=== PATIENT | male | born 1980 | race Caucasian/White ===

== ENCOUNTER 2020-03-04 08:35 | Emergency (ER) | payer BC, OTHER ==
[2020-03-04] MEDS ORDERED: Lactated Ringers 500 ML IV ONE (08:53)
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
[2020-03-04] MEDS ORDERED: Fluorescein 1 MG Ophth Strip EYELF ONE (09:23)
[2020-03-04] MEDS ORDERED: Acetaminophen 325 MG Tab PO ONE (10:05)
[2020-03-04] MEDS ORDERED: Erythromycin Base 0.5% Ophth Oint 1 GM Tube EYELF ONE (10:21)
== END 2020-03-04 10:45 | disposition home or self-care (01) ==
LOC: JD.ED 08:35
DX: T51.1X1A Toxic effect of methanol, accidental (unintentional), initial encounter (principal); T26.62XA Corrosion of cornea and conjunctival sac, left eye, initial encounter; Z88.1 Allergy status to other antibiotic agents
CPT/HCPCS: 99283; A9270; J7120